=== PATIENT | female | born 2000 | race Caucasian/White ===

== ENCOUNTER 2021-05-08 10:13 | Day surgery (SDC) | payer OTHER, SELFPAY ==
[~2021-05-08] VITALS: Ht 167.6 cm; Wt 68.5 kg
[2021-05-08] MEDS ORDERED: fentaNYL citrate 0.05 MG/ML VIAL ONE (12:49)
[2021-05-08] MEDS ORDERED: MIDAZOLAM 5 MG/5 ML VIAL ONE (12:49)
[2021-05-08] MEDS ORDERED: LIDOCAINE 2% 100 MG/5 ML UJET TP ONE (12:49)
[2021-05-08] MEDS ORDERED: diphenhydrAMINE 50 MG/ML VIAL ONE (12:49)
[2021-05-08] MEDS ORDERED: MIDAZOLAM 2 MG/2 ML VIAL IVP ONE (13:35)
[2021-05-08] MEDS ORDERED: fentaNYL citrate 0.05 MG/ML VIAL IVP ONE (13:35)
== END 2021-05-08 15:31 | disposition home or self-care (01) ==
LOC: MDS 10:13 → MMU 10:13 → MDS 15:31
PROVIDERS: ATTEND Internal Medicine Gastroenterology
DX: K62.5 Hemorrhage of anus and rectum (principal); K59.00 Constipation, unspecified; Z79.899 Other long term (current) drug therapy; Z20.822 Contact with and (suspected) exposure to COVID-19
CPT/HCPCS: 45378; 81025; J2250; J3010; U0003; J1200